=== PATIENT | female | born 1955 | race Caucasian/White ===

== ENCOUNTER 2017-08-06 20:46 | Emergency (ER) | payer SELFPAY ==
[~2017-08-06] VITALS: Ht 162.6 cm; Wt 61.0 kg
[2017-08-07] MEDS ORDERED: HYDROCODONE/APAP 7.5/325MG 1 TAB TABLET PO ONE (01:45)
[2017-08-07 02:06] VITALS: BP 143/87
== END 2017-08-07 02:51 | disposition home or self-care (01) ==
LOC: ER 08-07 02:47
DX: B02.9 Zoster without complications (principal)
CPT/HCPCS: 99283; Z7610